=== PATIENT | male | born 1950 | race Caucasian/White ===

== ENCOUNTER 2023-03-06 08:07 | Day surgery (SDC) | payer MEDICARE ==
[2023-03-05 10:18] VITALS: BP 145/76
[~2023-03-06] VITALS: Ht 175.3 cm; Wt 90.0 kg
--- NOTE | ~2023-03-06 | OR ---
[facility] [address], [place] [address] Draft DATE OF OPERATION: 03/06/2023 SURGEON: Greyson Curtis MD PREOPERATIVE DIAGNOSES: 1. Hypertrophic inferior turbinates. 2. Nasal obstruction. 3. Allergic rhinitis. POSTOPERATIVE DIAGNOSES: 1. Hypertrophic inferior turbinates. 2. Nasal obstruction. 3. Allergic rhinitis. PROCEDURE: Cautery bilateral inferior turbinates, submucosal. ANESTHESIA: General LMA, Fadi GRAY. PREOPERATIVE HISTORY: Mr. Gutierres is a 72-year-old man with chronic nasal congestion, drainage, obstruction, unresponsive to appropriate medications. Office exam has shown hypertrophic inferior turbinates. He is taken to the operating room for the above-mentioned procedures. OPERATIVE PROCEDURE AND FINDINGS: After informed consent, the patient was taken to the operating room, placed in the supine position where general LMA anesthesia was induced. The patient and procedure were verified. The patient received preoperative intranasal oxymetazoline, intravenous Ancef. Headlight speculum exam of the nasal cavity showed good decongestion of the inferior turbinates. The inferior turbinate was then cauterized starting on the right side, long handle needle point cautery multiple transmucosal passes starting on the anterior portion of the inferior turbinate all the way back posteriorly medial and inferior surface. Excellent decongestion and shrinkage of the turbinate was obtained in this manner. Same procedure on the right inferior turbinate. Bleeding was minimal, stopped afterwards. Packing was placed, trimmed Merocel one piece each side, coated with Neosporin, tied anteriorly over a pad. The pharynx was suctioned clear of blood and secretions. The patient was then awakened, extubated, transported to the recovery room in good condition. No complications. PATIENT NAME: AVINASH GUTIERRES OPERATIVE REPORT DATE OF : 52 REPORT #: [id number] PHYSICIAN: GREYSON CURTIS MD PCP: CASSI ARMAS PA-C REPORT IS CONFIDENTIAL AND NOT TO BE RELEASED WITHOUT AUTHORIZATION [facility] [address] [place] [id number] Draft BLOOD LOSS: Minimal. SPECIMEN: No specimens. DRAINS: No drains. PACKING: One piece of Merocel each nostril. Greyson Curtis MD GC/MODL /[id number] Copies: ~ PATIENT NAME: AVINASH GUTIERRES OPERATIVE REPORT DATE OF : 52 REPORT #: [id number] PHYSICIAN: GREYSON CURTIS MD PCP: CASSI ARMAS PA-C REPORT IS CONFIDENTIAL AND NOT TO BE RELEASED WITHOUT AUTHORIZATION
[~2023-03-06 08:07] MED LIST: APPLE CIDER VI600 MG PO; BIOTIN5 MG PO; COQ-10100 MG PO; METAFOLBIC TAB1 EACH PO; NAC500 MG PO; OSTERA TABLET1 EACH PO; [UNRECOGNIZED DRUG - OTHER] PO
[2023-03-06 08:32] VITALS: BP 138/69
[2023-03-06] MEDS ORDERED: IVERMECTIN3 MG PO (08:40)
[2023-03-06 11:03] VITALS: BP 130/66
--- NOTE | 2023-03-06 11:12 | NUR ---
1100 PT CAME TO DAY SURGERY FROM PACU TOOK REPORT FROM HESHAM PABLO. VITALS TAKEN. PT BREATHING EQUAL AND UNLABORED. PT HAS NO PAIN TO REPORT. PT REPORTS NO NAUSEA. PT HAS AT BEDSIDE, CALL LIGHT WITHIN REACH, WATER AND SNACKS AT BEDSIDE. PT AND FAMILY HAVE NO FURTHER QUESTIONS AT THIS TIME.
--- NOTE | 2023-03-06 11:38 | NUR ---
03/06/23 1138 Sheets,Shakila 1021 PT ARRIVED TO PACU WITH OFFICE DIRECTOR APPILING PRESSURE TO PT NOSE AND ORAL AIRWAY IN PLACE. SUCTION USED, BLEEDING NOTED FROM NOSE. FLANK RED BLOOD NOTED IN SUCTION, PT COUGHING BUT EYES REMAIN CLOSED. INCREASED BP NOTED AND OFFICE DIRECTOR GIVING BP MEDICATION. 10L MASK IN PLACE OFF AND ON DUE TO SUCTION. 1025 OFFICE DIRECTOR CONTINUES TO GIVE BP MEDICATION, RN HOLDS PRESSURE ON NOSE AND CONTINUES TO SUCTION OFF AND ON. 1028 BP DECREASING AND RN ENCOURAGES DEEP BREATHING. PT NO LONGER COUGHING AND NO BLOOD NOTED IN SUCTION. PRESSURE SLOWLY RELEASED FROM NOSE AND PT EYES REMAIN CLOSED. 10L MASK REMAIN IN PLACE. RESP EVEN AND UNLABORED. 1034 PT WOKE AND ORAL AIRWAY REMOVED. PT REORIENTED TO PACU AND PT DENIES PAIN. HOB INCREASED SLIGHTLY. 1039 O2 REMOVED. HOB INCREASED AND PT COUGHIING. PT ENCOURAGED TO SPIT OUT ANY DRAINAGE, PT SPIT OUT SMALL AMOUNT OF CRIS RED DRAINAGE. 1045 PT RESTING IN BED WITH NO CONCERNS, RN HELPS PT SWISH WATER IN MOUTH AND SPIT OUT TO WASH OUT MOUTH. PT DECLINES SIPS OF WATER. PT DENIES NAUSEA AND PAIN. 1055 PLAN OF CARE DISCUSSED AND PT RESTING WITH EYES CLOSED OFF AND ON BP REMAINS WITHIN NORMAL RANGE. 1100 PT RETURNED TO AND REPORT GIVEN. AT BEDSIDE AND ALL QUESTIONS ANSWERED. EDUCAITON GIVEN ON BP AND NOSE BLEED IN RECOVERY.
[2023-03-06 11:54] VITALS: BP 125/71
--- NOTE | 2023-03-06 12:37 | NUR ---
1228 PT ABLE TO TOLERATE CRACKERS AND WATER PO. PT HAS MINIMAL BLEEDING FROM SITE. PT ABLE TO VOID 150 MLS. PT REPORTS NO PAIN. PT REPORTS NO NAUSEA. DISCHARGE PAPERWORK GONE OVER WITH PT AND AT BEDSIDE. PT AND HAVE NO FURTHER QUESTIONS AT THIS TIME. 1230 PT DISCHARGED FROM DAY SURGERY VIA WHEELCHAIR TO PT'S 'S CAR AT FRONT OF HOSPITAL.
== END 2023-03-06 12:30 | disposition home or self-care (01) ==
LOC: OPS 08:07 → DS 08:07 → OPS 09:00 → DS 09:00 → OPS 09:30
PROVIDERS: ATTEND Otolaryngology
PROC: 09BL7ZZ Excision of Nasal Turbinate, Via Natural or Artificial Opening (ICD-10-PCS; principal; 2023-03-06 09:30)
DX: J34.3 Hypertrophy of nasal turbinates (principal); J34.89 Other specified disorders of nose and nasal sinuses; J30.9 Allergic rhinitis, unspecified; K21.9 Gastro-esophageal reflux disease without esophagitis; Z88.7 Allergy status to serum and vaccine; Z79.899 Other long term (current) drug therapy
CPT/HCPCS: 00160; A9270; J0690; J1100; J1885; J2250; J2405; J2704; J2765; J3010; J7121